=== PATIENT | female | born 1965 | race Caucasian/White ===

== ENCOUNTER 2021-08-25 15:03 | Emergency (ER) | payer OTHER ==
[~2021-08-25] VITALS: Ht 152.4 cm; Wt 95.3 kg
[~2021-08-25 15:03] MED LIST: AMITRIPTYLINE H10 MG PO; DICY10CA PO; GABAPENTIN100 MG PO; HYOSCYAMINE0.125 M1 SL; LEVSIN0.125 MG PO; PROTONIX40 MG PO; RELAFEN DS1000 MG PO; VITAMIN D350000 UNIT PO; [UNRECOGNIZED DRUG - OTHER] PO
[2021-08-25] MEDS ORDERED: HYOSCYAMINE0.125 M1 (17:00)
[2021-08-25] MEDS ORDERED: FLUCONAZOLE200 MG (17:00)
[2021-08-25] MEDS ORDERED: CEFDINIR300 MG (17:01)
[2021-08-25] MEDS ORDERED: MACRODANTIN100 M1 (17:01)
[2021-08-25] MEDS ORDERED: PHENAZOPYRIDIN200 MG (17:02)
[2021-08-25] MEDS ORDERED: PREGABALIN 50 MG (17:04)
[2021-08-25] MEDS ORDERED: TYLENOL (17:05)
== END 2021-08-25 18:24 | disposition home or self-care (01) ==
LOC: ER 15:03
DX: N39.0 Urinary tract infection, site not specified (principal)

== ENCOUNTER 2022-01-05 09:53 | Emergency (ER) | payer OTHER ==
[~2022-01-05] VITALS: Ht 177.8 cm; Wt 976.6 kg
[~2022-01-05 09:53] MED LIST changes: +CEFDINIR300 MG; +FLUCONAZOLE200 MG; +HYOSCYAMINE0.125 M1; +MACRODANTIN100 M1; +PHENAZOPYRIDIN200 MG; +PREGABALIN 50 MG; +TYLENOL
[2022-01-05] MEDS ORDERED: LYRICA50 MG PO (10:03)
[2022-01-05] MEDS ORDERED: ADULT LOW DOSE81 M1 PO (10:03)
[2022-01-05] MEDS ORDERED: LIPITOR20 MG PO (10:03)
[2022-01-05] MEDS ORDERED: ZITHROMAX TRI-500 MG PO (13:12)
[2022-01-05] MEDS ORDERED: ZYRTEC10 M3 PO (13:12)
[2022-01-05] MEDS ORDERED: TUSNEL CAPLET1 EACH PO (13:12)
== END 2022-01-05 13:20 | disposition home or self-care (01) ==
LOC: ER 09:53
DX: B34.9 Viral infection, unspecified (principal); R09.81 Nasal congestion; Z88.6 Allergy status to analgesic agent; Z20.822 Contact with and (suspected) exposure to COVID-19

== ENCOUNTER 2022-08-14 11:33 | Inpatient (IN) | payer OTHER ==
[~2022-08-14] VITALS: Ht 152.4 cm; Wt 93.0 kg
[~2022-08-14 11:33] MED LIST changes: +ADULT LOW DOSE81 M1 PO; +BETHANECHOL CHL25 MG PO; +LIPITOR20 MG PO; +LYRICA50 MG PO; +TUSNEL CAPLET1 EACH PO; +ZITHROMAX TRI-500 MG PO; +ZYRTEC10 M3 PO
--- NOTE | 2022-08-14 12:36 | NUR ---
PACIENTE VERBALIZA DOLOR PELVICO Y ARDOR AL ORINAR MOLESTIA EN AREA ABDOMINAL.
--- NOTE | 2022-08-14 13:52 | NUR ---
PTE EVALAUDO POR DR. CORTES SE EJECUTA ORDEN EN HAND TOTALIADAD, SE SARAH MUESTRA BAJO MEDIDAS ASEPTICAS Y SE CANALIZA CON ANGIO #18 MANO DERECHA TIENE UN DRIP BAJANDO DE 0.9NSS BAJANDO A 150ML/HR , SE ORIENTA APTE SOBRE TODAS LAS INTERVENCION PTE/FAMILIAR REFIEREN ENTENDER.
== END 2022-08-18 18:32 | disposition home or self-care (01) | DRG 690 ==
LOC: ER 11:33 → SURH 21:36 → MEDJ 21:36 → SURH 08-15 04:47
PROVIDERS: ADMIT Internal Medicine; ATTEND Internal Medicine
PROC: BW21ZZZ Computerized Tomography (CT Scan) of Abdomen and Pelvis (ICD-10-PCS; principal; 2022-08-14)
DX: N39.0 Urinary tract infection, site not specified (principal); D72.828 Other elevated white blood cell count; N12 Tubulo-interstitial nephritis, not specified as acute or chronic; M79.7 Fibromyalgia; K58.8 Other irritable bowel syndrome; Z20.822 Contact with and (suspected) exposure to COVID-19

== ENCOUNTER 2022-11-09 03:57 | Inpatient (IN) | payer OTHER ==
[~2022-11-09] VITALS: Ht 154.9 cm; Wt 79.4 kg
== END 2022-11-11 17:41 | disposition home or self-care (01) | DRG 690 ==
LOC: ER 03:57 → SURG 19:18
PROVIDERS: ADMIT Internal Medicine; ATTEND Internal Medicine
DX: N39.0 Urinary tract infection, site not specified (principal); I10 Essential (primary) hypertension; M79.7 Fibromyalgia; Z20.822 Contact with and (suspected) exposure to COVID-19

== ENCOUNTER 2023-03-29 10:11 | Emergency (ER) | payer OTHER ==
[~2023-03-29] VITALS: Ht 152.4 cm; Wt 91.6 kg
== END 2023-03-29 16:35 | disposition home or self-care (01) ==
LOC: ER 10:11
DX: N39.0 Urinary tract infection, site not specified (principal); M79.7 Fibromyalgia; Z88.6 Allergy status to analgesic agent